=== PATIENT | male | born 1980 ===

== ENCOUNTER 2021-02-03 08:11 | Emergency (ER) | payer SELFPAY ==
[~2021-02-03] VITALS: Ht 172.7 cm; Wt 106.6 kg
[2021-02-03 08:27] VITALS: BP 147/88
== END 2021-02-03 09:43 | disposition home or self-care (01) ==
LOC: ER 08:11
DX: G44.209 Tension-type headache, unspecified, not intractable (principal)
CPT/HCPCS: 70450